=== PATIENT | female | born 1950 | race Caucasian/White ===

== ENCOUNTER → 2016-12-09 | Outpatient (REF) | payer MEDICARE | LOC: M SFHCWAGY 08:48 | PROVIDERS: ATTEND Nurse Practitioner Family | DX: Z01.419 Encounter for gynecological examination (general) (routine) without abnormal findings (principal) | CPT/HCPCS: 82270; G0101; G0123 ==

== ENCOUNTER → 2017-05-11 | Outpatient (REF) | payer MEDICARE | LOC: M LAB REF 17:04 | PROVIDERS: ATTEND Physician Assistant Medical | DX: R30.0 Dysuria (principal) ==

== ENCOUNTER → 2020-06-04 | Outpatient (CLI) | payer MEDICARE ==
--- NOTE | 2020-06-04 14:42 | REP ---
INDICATION: N63.10 JONAS DIAG MAMMO/RIGHT BREAST LUMP; N62.10 RIGHT BREAST LUMP. COMPARISON: Mammography August 18, 2010, November 15, 2007. TECHNIQUE: Bilateral CC and MLO) view(s) were taken. 3D tomography was included. Skin marker is affixed to the skin in the right breast at the site of the palpable lump. Routine views of the right breast are augmented by magnified focal spot-compression images. FINDINGS: Scattered fibroglandular elements are seen bilaterally. No suspicious or dominant density is seen. No microcalcification or architectural distortion is seen. No worrisome skin change is appreciated. 3-D tomosynthesis shows no additional finding. The [place] volumetric breast density pattern is B. There is no suspicious mammographic finding. Targeted right breast sonography: Targeted sonography in the area the right axillary tail in the region of the palpable lump or thickening shows multiple normal appearing lymph nodes. The largest of these measure 2.1 x 1.1 x 0.7 cm and 2.1 x 1.2 x 0.7 cm. These have mm thin cortical margins and hyperechoic echogenic fatty hilar architecture. No mass or cyst is seen. No acoustic shadowing or architectural distortion is appreciated.. IMPRESSION: BIRADS/ACR category 2 benign bilateral mammographic and right breast sonographic findings. Normal appearing lymph nodes in the axilla. No mass or cyst is seen.. Clinical follow-up is advised. This patient's [facility] lifetime breast cancer risk assessment score is 6.3%. This mammogram was interpreted with the aid of an FDA-approved computer-aided detection system. The patient states she had a clinical breast exam in May of 2020.. The patient letter being requested is M2. RECOMMENDATION: Repeat screening mammography recommended 1 year (for women over 40). <Electronically signed by Trell Alston > 06/04/20 [id number]
== END ==
LOC: M WHC 12:10
PROVIDERS: ATTEND Nurse Practitioner Family
DX: Z01.411 Encounter for gynecological examination (general) (routine) with abnormal findings (principal); N63.11 Unspecified lump in the right breast, upper outer quadrant
CPT/HCPCS: 76642; 77066; G0101; G0279

== ENCOUNTER → 2020-06-24 | Outpatient (CLI) | payer SELFPAY | LOC: M LABSMTC 10:52 | PROVIDERS: ATTEND Pediatrics | DX: Z20.822 Contact with and (suspected) exposure to COVID-19 (principal) ==

== ENCOUNTER → 2020-07-24 | Outpatient (REF) | payer MEDICARE | LOC: EEVIPCON 12:39 → M LAB REF 12:39 | PROVIDERS: ATTEND Nurse Practitioner Family | DX: N39.0 Urinary tract infection, site not specified (principal) ==

== ENCOUNTER → 2020-08-08 | Outpatient (REF) | payer MEDICARE ==
[2020-08-08 18:05] LABS: BLOOD UREA NITROGEN 13 MG/DL (7-18); CALCIUM LEVEL 9.5 MG/DL (8.8-10.2); CARBON DIOXIDE LEVEL 32 MEQ/L (21-32); CHLORIDE LEVEL 104 MEQ/L (98-107); CREATININE FOR GFR 0.62 MG/DL (0.55-1.30); GLOMERULAR FILTRATION RATE > 60.0 (>39); GLUCOSE, FASTING 96 MG/DL (70-100); SODIUM LEVEL 141 MEQ/L (136-145)
== END ==
LOC: M PLALAB 14:50
PROVIDERS: ATTEND Surgery
DX: R59.9 Enlarged lymph nodes, unspecified (principal)

== ENCOUNTER → 2020-09-07 | Outpatient (CLI) | payer MEDICARE ==
--- NOTE | 2020-09-07 16:29 | REP ---
INDICATION: PAIN IN RIGHT SHOULDER. COMPARISON: None. TECHNIQUE: There are three views. FINDINGS: The acromioclavicular and glenohumeral articulations are unremarkable. There is no fracture or dislocation. There are no calcifications or foreign bodies. IMPRESSION: Essentially negative plain film study of the right shoulder. <Electronically signed by David Choi > 09/07/20 [id number]
== END ==
LOC: M RAD 15:42
PROVIDERS: ATTEND Physician Assistant
DX: M25.511 Pain in right shoulder (principal)

== ENCOUNTER → 2020-09-10 | Outpatient (CLI) | payer MEDICARE ==
--- NOTE | 2020-09-10 16:30 | REP ---
A sunrise view INDICATION: PAIN RIGHT KNEE. COMPARISON: None. TECHNIQUE: Standing AP and lateral views of each knee. [place] view of each knee. Total of 6 views. FINDINGS: There is moderate osteoarthritis bilaterally. There is joint space narrowing in the lateral compartment of each tibiofemoral articulation with lateral spurring. Medial compartment joint spaces are preserved. There is diffuse osteopenia. There is bilateral patellofemoral joint space narrowing and spur formation as well. Lateral patellar osteophyte formation is seen on the sunrise views. IMPRESSION: Moderate lateral and patellofemoral compartment osteoarthritic changes bilaterally and symmetrically. No erosive changes seen.. <Electronically signed by Trell Alston > 09/10/20 [id number]
== END ==
LOC: M SOG 13:50
PROVIDERS: ATTEND Family Medicine
DX: M17.0 Bilateral primary osteoarthritis of knee (principal)

== ENCOUNTER → 2020-10-22 | Outpatient (CLI) | payer MEDICARE ==
--- NOTE | 2020-10-22 15:16 | REP ---
INDICATION: RT SHOULDER PAIN. COMPARISON: Radiographs 09/07/2020. TECHNIQUE: Coronal oblique T1, T2 fat sat, sagittal oblique T2 fat sat, axial T2 fat sat, gradient echo. FINDINGS: Rotator cuff: There is partial full-thickness tear of the supraspinatus tendon beneath the acromion. Acromioclavicular joint: There are moderate hypertrophic degenerative changes of the acromioclavicular joint with mild downward sloping of the acromion. Acromion: Type 1 Biceps Tendon: In bicipital groove, no tenosynovitis. Hill Sach's deformity: None. Deltoid muscle: No abnormal signal. Biceps labral complex: There is fraying of the biceps labral complex. Labrum: Oblique linear signal in the superior labrum are suggestive of a SLAP tear. Cartilage: There is moderate chondromalacia of the glenoid especially anteriorly. Bone marrow: Moderate subcortical cystic changes are seen in the superolateral humeral head. Joint fluid: There is a large joint effusion. There is large amount of fluid in the subacromial/subdeltoid bursae. IMPRESSION: Full-thickness partial tear supraspinatus tendon. Moderate hypertrophic degenerative changes acromioclavicular joint with mild downward sloping of the acromion. There is fraying of the biceps labral complex. There are findings suggesting a SLAP tear. Further evaluation of the labrum could be made with MR arthrography. Large joint effusion. Large amount of fluid in the subacromial/subdeltoid bursae. <Electronically signed by David Pearce > 10/22/20 [id number]
== END ==
LOC: M PLARAD 13:43
PROVIDERS: ATTEND Orthopaedic Surgery Adult Reconstructive Orthopaedic Surgery
DX: M25.511 Pain in right shoulder (principal); M25.411 Effusion, right shoulder; S46.911A Strain of unspecified muscle, fascia and tendon at shoulder and upper arm level, right arm, initial encounter; X58.XXXA Exposure to other specified factors, initial encounter; Y92.9 Unspecified place or not applicable

== ENCOUNTER → 2020-11-12 | Outpatient (REF) | payer MEDICARE ==
[2020-11-12 13:37] LABS: CHOLESTEROL RISK RATIO 3.554 (<5)
== END ==
LOC: M LABDRWAD 12:22
PROVIDERS: ATTEND Internal Medicine Cardiovascular Disease
DX: E78.2 Mixed hyperlipidemia (principal)

== ENCOUNTER → 2020-12-03 | Outpatient (CLI) | payer MEDICARE ==
--- NOTE | 2020-12-03 15:40 | REP ---
INDICATION: IMPINGEMENT SYNDROME. COMPARISON: None. TECHNIQUE: Six views of the left shoulder were obtained FINDINGS: The glenohumeral and acromioclavicular relationships are within normal limits. There is no acute fracture, dislocation, or subluxation. There is no evidence of significant degenerative change. There is minimal humeral head marginal osteophytosis. IMPRESSION: No acute abnormality noted. Findings as described above. <Electronically signed by Shaan Espinoza > 12/03/20 [id number]
== END ==
LOC: M SOG 13:41
PROVIDERS: ATTEND Orthopaedic Surgery Sports Medicine
DX: M75.42 Impingement syndrome of left shoulder (principal); M25.712 Osteophyte, left shoulder

== ENCOUNTER 2020-12-21 15:25 | Emergency (ER) | payer MEDICARE ==
[~2020-12-21] VITALS: Ht 162.6 cm; Wt 56.1 kg
[2020-12-21] MEDS ORDERED: ASPI81CH48 PO (15:38)
[2020-12-21 16:30] LABS: BASO # 0.1 10^3/uL (0.0-0.2); EOS # 0.1 10^3/uL (0.0-0.5); EOS % 1.2 % (0.0-3.0); HEMATOCRIT 45.6 % (36.0-47.0); HEMOGLOBIN 14.6 g/dl (12.0-15.5); LYMPH # 1.4 10^3/uL (1.5-5.0); LYMPH % 27.7 % (24.0-44.0); MEAN CORPUSCULAR HEMOGLOBIN 29.3 pg (27.0-33.0); MEAN CORPUSCULAR VOLUME 91.6 fl (80.0-96.0); MONO # 0.4 10^3/uL (0.0-0.8); MONO % 6.9 % (2.0-8.0); NEUTROPHILS # 3.2 10^3/uL (1.5-8.5); NEUTROPHILS % 63.2 % (36.0-66.0); PLATELET COUNT, AUTOMATED 211 10^3/uL (150-450); RED BLOOD COUNT 4.98 10^6/uL (4.00-5.40); WHITE BLOOD COUNT 5.1 10^3/uL (4.0-10.0)
[2020-12-21 16:55] LABS: ALBUMIN 4.2 GM/DL (3.2-5.2); ALT/SGPT 23 U/L (12-78); BILIRUBIN,DIRECT 0.1 MG/DL (0.0-0.2); BILIRUBIN,TOTAL 0.5 MG/DL (0.2-1.0); LIPASE 175 U/L (73-393)
[2020-12-21 17:31] LABS: BLOOD UREA NITROGEN 9 MG/DL (7-18); CALCIUM LEVEL 9.3 MG/DL (8.8-10.2); CARBON DIOXIDE LEVEL 29 MEQ/L (21-32); CHLORIDE LEVEL 105 MEQ/L (98-107); CREATININE FOR GFR 0.64 MG/DL (0.55-1.30); GLOMERULAR FILTRATION RATE > 60.0 (>39); GLUCOSE, FASTING 104 MG/DL (70-100); POTASSIUM SERUM 3.8 MEQ/L (3.5-5.1); SODIUM LEVEL 140 MEQ/L (136-145)
--- NOTE | 2020-12-21 18:20 | REP ---
INDICATION: ruq pain COMPARISON: None. TECHNIQUE: Real time osp[place] scale ultrasound examination using curved array transducer. FINDINGS: Liver is normal in contour, size, and echogenicity without focal hepatic lesions identified. Pancreas is incompletely evaluated due to interposed bowel gas. The gallbladder is normal and without gallstones, wall thickening, or pericholecystic fluid. No biliary ductal dilatation is appreciated and the common bile duct measures 5.7 mm diameter. Right kidney is normal in reniform shape with mild pelviectasis and measures 11.8 x 5.2 x 3.9 cm. No significant hydronephrosis, nephrolithiasis, or cystic mass lesion appreciated. No ascites in the visualized right upper quadrant. IMPRESSION: Essentially normal limited right upper quadrant ultrasound <Electronically signed by Angelo Salazar > 12/21/20 [id number]
--- NOTE | 2020-12-21 18:22 | REP ---
INDICATION: ruq pain COMPARISON: None. TECHNIQUE: B-mode grayscale and color evaluation of the right lower quadrant. FINDINGS: The right ovary is normal in appearance and vascularity without torsion and measures 2.0 x 1.2 x 1.0 cm. Further evaluation of the right lower quadrant demonstrates normal peristaltic bowel and no free fluid or adenopathy. The appendix is not visualized. However no secondary findings to suggest acute appendicitis are noted by ultrasound. IMPRESSION: Normal right ovary and right lower quadrant. No secondary findings to suggest acute appendicitis. <Electronically signed by Angelo Salazar > 12/21/20 [id number]
[2020-12-21 18:52] VITALS: BP 135/77
== END 2020-12-21 18:53 | disposition home or self-care (01) ==
LOC: M ED 15:25
DX: R14.0 Abdominal distension (gaseous) (principal); R10.31 Right lower quadrant pain; Z87.442 Personal history of urinary calculi

== ENCOUNTER → 2020-12-30 | Outpatient (CLI) | payer MEDICARE ==
[~2020-12-30] MED LIST: ASPI81CH48 PO
== END ==
LOC: M RAD 16:16
PROVIDERS: ATTEND Orthopaedic Surgery Sports Medicine
DX: M75.42 Impingement syndrome of left shoulder (principal)

== ENCOUNTER → 2021-03-24 | Outpatient (CLI) | payer MEDICARE ==
--- NOTE | 2021-03-25 08:58 | REP ---
INDICATION: RT BREAST , MASS. Unspecified lump in the right breast, unspecified quadrant. Axillary tail region. COMPARISON: Comparison sonography June 04, 2020. TECHNIQUE: Targeted right axillary sonography. FINDINGS: Numerous normal appearing lymph nodes are again seen in the right axilla. The 2 largest lymph nodes measure 1.1 x 2.8 x 0.7 cm and 0.9 x 1.0 x 0.6 cm. These have thin cortical margins. These appear unchanged from the June 04, 2020 study. No suspicious cortical thickening or mass lesion is seen. No cyst is observed. IMPRESSION: Stable BI-RADS category 2 benign findings. <Electronically signed by Trell Alston > 03/25/21 [id number]
== END ==
LOC: M RAD 17:38
PROVIDERS: ATTEND Surgery
DX: N63.31 Unspecified lump in axillary tail of the right breast (principal); Z80.3 Family history of malignant neoplasm of breast

== ENCOUNTER → 2021-07-02 | Outpatient (REF) | LOC: M LABSMTC 12:16 | PROVIDERS: ATTEND Pediatrics | DX: Z11.52 Encounter for screening for COVID-19 (principal) ==

== ENCOUNTER → 2021-11-10 | Outpatient (REF) | payer MEDICARE | LOC: M WUC 20:33 | PROVIDERS: ATTEND Physician Assistant | DX: R30.0 Dysuria (principal) ==

== ENCOUNTER → 2021-11-17 | Outpatient (REF) | payer MEDICARE ==
[2021-11-17 17:46] LABS: APPEARANCE, URINE CLEAR (CLEAR); BACTERIA, URINE AUTO NEGATIVE (NEGATIVE); BILIRUBIN, URINE AUTO NEGATIVE (NEGATIVE); BLOOD, URINE BLOOD NEGATIVE (NEGATIVE); COLOR, URINE STRAW (YELLOW); GLUCOSE, URINE (UA) AUTO NEGATIVE (NEGATIVE); KETONE, URINE AUTO NEGATIVE (NEGATIVE); LEUKOCYTE ESTERASE, URINE AUTO NEGATIVE (NEGATIVE); NITRITE, URINE AUTO NEGATIVE (NEGATIVE); PROTEIN, URINE AUTO NEGATIVE (NEGATIVE); RBC, URINE AUTO 0 /HPF (0-3); SPECIFIC GRAVITY URINE AUTO 1.005 (1.002-1.035); SQUAMOUS EPITHELIAL CELL UR AU 0 /HPF (0-6); UROBILINOGEN, URINE AUTO 0.2 mg/dL (0.0-2.0); WBC, URINE AUTO 0 /HPF (0-3)
== END ==
LOC: M LAB REF 17:08
PROVIDERS: ATTEND Physician Assistant Medical
DX: N39.0 Urinary tract infection, site not specified (principal)

== ENCOUNTER → 2021-12-30 | Outpatient (CLI) | payer MEDICARE | LOC: M RAD 15:37 | PROVIDERS: ATTEND Physician Assistant | DX: N32.89 Other specified disorders of bladder (principal); R10.9 Unspecified abdominal pain ==

== ENCOUNTER → 2022-01-19 | Outpatient (CLI) | payer MEDICARE | LOC: M WHC 11:27 | PROVIDERS: ATTEND Physician Assistant | DX: Z12.31 Encounter for screening mammogram for malignant neoplasm of breast (principal) ==

== ENCOUNTER → 2022-01-26 | Outpatient (REF) | payer MEDICARE ==
[2022-01-26 17:25] LABS: APPEARANCE, URINE CLEAR (CLEAR); BACTERIA, URINE AUTO NEGATIVE (NEGATIVE); BILIRUBIN, URINE AUTO NEGATIVE (NEGATIVE); BLOOD, URINE BLOOD NEGATIVE (NEGATIVE); COLOR, URINE COLORLESS (YELLOW); GLUCOSE, URINE (UA) AUTO NEGATIVE (NEGATIVE); KETONE, URINE AUTO NEGATIVE (NEGATIVE); LEUKOCYTE ESTERASE, URINE AUTO NEGATIVE (NEGATIVE); NITRITE, URINE AUTO NEGATIVE (NEGATIVE); PROTEIN, URINE AUTO NEGATIVE (NEGATIVE); RBC, URINE AUTO 0 /HPF (0-3); SPECIFIC GRAVITY URINE AUTO 1.003 (1.002-1.035); SQUAMOUS EPITHELIAL CELL UR AU 0 /HPF (0-6); UROBILINOGEN, URINE AUTO 0.2 mg/dL (0.0-2.0); WBC, URINE AUTO 0 /HPF (0-3)
== END ==
LOC: M SMT 16:53
PROVIDERS: ATTEND Urology
DX: Z87.440 Personal history of urinary (tract) infections (principal); Z79.899 Other long term (current) drug therapy

== ENCOUNTER → 2023-02-23 | Outpatient (REF) | payer MEDICARE | LOC: M SFHCDERM 12:53 | PROVIDERS: ATTEND Nurse Practitioner Family | DX: C44.519 Basal cell carcinoma of skin of other part of trunk (principal) ==

== ENCOUNTER → 2023-03-11 | Outpatient (CLI) | payer MEDICARE | LOC: M SOG 07:52 | PROVIDERS: ATTEND Orthopaedic Surgery | DX: M17.0 Bilateral primary osteoarthritis of knee (principal) ==

== ENCOUNTER → 2023-03-30 | Outpatient (CLI) | payer MEDICARE | LOC: M WHC 16:32 | PROVIDERS: ATTEND Physician Assistant | DX: Z12.31 Encounter for screening mammogram for malignant neoplasm of breast (principal) ==

== ENCOUNTER → 2023-11-01 | Outpatient (REF) | payer MEDICARE ==
[2023-11-01 16:57] LABS: APPEARANCE, URINE CLEAR (CLEAR); BACTERIA, URINE AUTO NEGATIVE (NEGATIVE); BILIRUBIN, URINE AUTO NEGATIVE (NEGATIVE); BLOOD, URINE BLOOD NEGATIVE (NEGATIVE); COLOR, URINE STRAW (YELLOW); GLUCOSE, URINE (UA) AUTO NEGATIVE (NEGATIVE); KETONE, URINE AUTO NEGATIVE (NEGATIVE); LEUKOCYTE ESTERASE, URINE AUTO NEGATIVE (NEGATIVE); NITRITE, URINE AUTO NEGATIVE (NEGATIVE); PROTEIN, URINE AUTO NEGATIVE (NEGATIVE); RBC, URINE AUTO 0 /HPF (0-3); SPECIFIC GRAVITY URINE AUTO 1.003 (1.002-1.035); SQUAMOUS EPITHELIAL CELL UR AU 0 /HPF (0-6); UROBILINOGEN, URINE AUTO 0.2 mg/dL (0.0-2.0); WBC, URINE AUTO 0 /HPF (0-3)
== END ==
LOC: M LAB REF 16:14
PROVIDERS: ATTEND Physician Assistant Medical
DX: N39.0 Urinary tract infection, site not specified (principal)

== ENCOUNTER 2024-01-12 15:56 | Emergency (ER) | payer MEDICARE ==
[~2024-01-12] VITALS: Ht 160 cm; Wt 55.4 kg
[2024-01-12 19:59] LABS: VENOUS BASE EXCESS 2.1 (-2.0-2.0); VENOUS HCO3 28.7 MMOL/L (23.0-27.0); VENOUS PARTIAL PRESSURE CO2 52.4 mmHg (38.0-50.0); VENOUS PARTIAL PRESSURE O2 26.2 mmHg (30.0-50.0); VENOUS PH 7.356 UNITS (7.330-7.430); VENOUS STANDARD HCO3 24.9 MMOL/L; VENOUS TOTAL CO2 30.3 MMOL/L (24.0-28.0)
[2024-01-12 20:08] LABS: BASO # 0.1 10^3/uL (0.0-0.2); BASO % 0.8 % (0.0-1.0); EOS # 0.1 10^3/uL (0.0-0.5); EOS % 1.5 % (0.0-3.0); HEMATOCRIT 43.5 % (36.0-47.0); HEMOGLOBIN 14.1 g/dl (12.0-15.5); LYMPH # 1.7 10^3/uL (1.5-5.0); LYMPH % 27.5 % (24.0-44.0); MEAN CORPUSCULAR HGB CONC 32.4 g/dl (32.0-36.5); MEAN CORPUSCULAR VOLUME 89.3 fl (80.0-96.0); MONO # 0.3 10^3/uL (0.0-0.8); MONO % 5.5 % (2.0-8.0); NEUTROPHILS % 64.7 % (36.0-66.0); PLATELET COUNT, AUTOMATED 213 10^3/uL (150-450); RED BLOOD COUNT 4.87 10^6/uL (4.00-5.40); WHITE BLOOD COUNT 6.2 10^3/uL (4.0-10.0)
[2024-01-12 20:32] LABS: CK-MB VALUE MASS 1.9 NG/ML (<3.6); LIPASE 45 U/L (12-53)
[2024-01-12 20:33] LABS: CPK CREATINE PHOSPHOKINASE 102 U/L (34-145); MB/CK RELATIVE INDEX 1.86 (< OR =4)
[2024-01-12 20:34] LABS: ALBUMIN 3.8 G/DL (3.2-5.2); ALKALINE PHOSPHATASE 77 U/L (46-116); ALT/SGPT 14 U/L (7.0-40); AST/SGOT 10 U/L (<34); BILIRUBIN,DIRECT 0.1 MG/DL (<0.4); BILIRUBIN,TOTAL 0.5 MG/DL (0.3-1.2); BLOOD UREA NITROGEN 11 MG/DL (9-23); CALCIUM LEVEL 9.7 MG/DL (8.3-10.6); CARBON DIOXIDE LEVEL 29 MMOL/L (20-31); CHLORIDE LEVEL 108 MMOL/L (98-107); CREATININE FOR GFR 0.55 MG/DL (0.55-1.30); GLOMERULAR FILTRATION RATE > 60.0 (>39); GLUCOSE, FASTING 85 MG/DL (74-106); MAGNESIUM LEVEL 2.3 MG/DL (1.8-2.4); POTASSIUM SERUM 3.9 MMOL/L (3.5-5.1); SODIUM LEVEL 140 MMOL/L (136-145)
[2024-01-12 21:28] LABS: CK-MB VALUE MASS 2.7 NG/ML (<3.6)
[2024-01-12 21:30] LABS: MB/CK RELATIVE INDEX 2.62 (< OR =4)
[2024-01-12 22:15] VITALS: O2SAT 98
[2024-01-12 22:16] VITALS: BP 125/68
[2024-01-12 22:21] VITALS: TEMP 98
== END 2024-01-12 22:29 | disposition home or self-care (01) ==
LOC: M ED 15:56
DX: R07.89 Other chest pain (principal); R00.1 Bradycardia, unspecified; Z91.09 Other allergy status, other than to drugs and biological substances; Z79.1 Long term (current) use of non-steroidal anti-inflammatories (NSAID)

== ENCOUNTER → 2024-01-31 | Outpatient (REF) | payer MEDICARE | LOC: M LAB REF 17:28 | PROVIDERS: ATTEND Physician Assistant | DX: R11.2 Nausea with vomiting, unspecified (principal); A08.11 Acute gastroenteropathy due to Norwalk agent; R19.7 Diarrhea, unspecified; R10.817 Generalized abdominal tenderness ==

== ENCOUNTER → 2024-03-17 | Outpatient (REF) | payer MEDICARE ==
[2024-03-17 20:45] LABS: APPEARANCE, URINE CLEAR (CLEAR); BACTERIA, URINE AUTO NEGATIVE (NEGATIVE); BILIRUBIN, URINE AUTO NEGATIVE (NEGATIVE); BLOOD, URINE BLOOD 2+ (NEGATIVE); COLOR, URINE STRAW (YELLOW); GLUCOSE, URINE (UA) AUTO NEGATIVE (NEGATIVE); KETONE, URINE AUTO NEGATIVE (NEGATIVE); LEUKOCYTE ESTERASE, URINE AUTO 3+ (NEGATIVE); NITRITE, URINE AUTO NEGATIVE (NEGATIVE); PROTEIN, URINE AUTO NEGATIVE (NEGATIVE); RBC, URINE AUTO 0 /HPF (0-3); SPECIFIC GRAVITY URINE AUTO 1.002 (1.002-1.035); SQUAMOUS EPITHELIAL CELL UR AU 0 /HPF (0-6); UROBILINOGEN, URINE AUTO 0.2 mg/dL (0.0-2.0); WBC, URINE AUTO 2 /HPF (0-3)
== END ==
LOC: M LAB REF 16:30
PROVIDERS: ATTEND Physician Assistant Medical
DX: N39.0 Urinary tract infection, site not specified (principal)

== ENCOUNTER → 2024-05-09 | Outpatient (REF) | payer MEDICARE ==
[2024-05-09 18:24] LABS: APPEARANCE, URINE CLEAR (CLEAR); BACTERIA, URINE AUTO NEGATIVE (NEGATIVE); BILIRUBIN, URINE AUTO NEGATIVE (NEGATIVE); BLOOD, URINE BLOOD NEGATIVE (NEGATIVE); COLOR, URINE COLORLESS (YELLOW); GLUCOSE, URINE (UA) AUTO NEGATIVE (NEGATIVE); KETONE, URINE AUTO NEGATIVE (NEGATIVE); LEUKOCYTE ESTERASE, URINE AUTO NEGATIVE (NEGATIVE); NITRITE, URINE AUTO NEGATIVE (NEGATIVE); PROTEIN, URINE AUTO NEGATIVE (NEGATIVE); RBC, URINE AUTO 1 /HPF (0-3); SPECIFIC GRAVITY URINE AUTO 1.002 (1.002-1.035); SQUAMOUS EPITHELIAL CELL UR AU 0 /HPF (0-6); UROBILINOGEN, URINE AUTO 0.2 mg/dL (0.0-2.0); WBC, URINE AUTO 0 /HPF (0-3)
== END ==
LOC: M SMT 17:18
PROVIDERS: ATTEND Nurse Practitioner Family
DX: N39.0 Urinary tract infection, site not specified (principal)

== ENCOUNTER → 2024-09-18 | Outpatient (CLI) | payer MEDICARE ==
[2024-09-18 16:34] LABS: HEMATOCRIT 43.3 % (36.0-47.0); HEMOGLOBIN 13.9 g/dl (12.0-15.5); MEAN CORPUSCULAR HEMOGLOBIN 28.9 pg (27.0-33.0); MEAN CORPUSCULAR HGB CONC 32.1 g/dl (32.0-36.5); PLATELET COUNT, AUTOMATED 213 10^3/uL (150-450); RED BLOOD COUNT 4.81 10^6/uL (4.00-5.40); WHITE BLOOD COUNT 5.7 10^3/uL (4.0-10.0)
[2024-09-18 16:38] LABS: ERYTHROCYTE SEDIMENTATION RATE 17 mm/hr (0-30)
[2024-09-18 16:59] LABS: ALBUMIN 3.8 G/DL (3.2-5.2); ALKALINE PHOSPHATASE 81 U/L (35-104); ALT/SGPT 18 U/L (7.0-40); AST/SGOT 15 U/L (<34); BILIRUBIN,TOTAL 0.5 MG/DL (0.3-1.2); BLOOD UREA NITROGEN 14 MG/DL (9-23); C REACTIVE PROTEIN QUANTITATIV < 0.50 MG/DL (<1.0); CALCIUM LEVEL 9.7 MG/DL (8.3-10.6); CARBON DIOXIDE LEVEL 32 MMOL/L (20-31); CHLORIDE LEVEL 105 MMOL/L (98-107); CHOLESTEROL LEVEL 306 MG/DL (<200); CREATININE FOR GFR 0.68 MG/DL (0.55-1.30); GLOMERULAR FILTRATION RATE > 60.0 (>39); HDL CHOLESTEROL 87.2 MG/DL (>40); LDL CHOLESTEROL 198.2 MG/DL (<100); NON-HDL-C 218.8 MG/DL; POTASSIUM SERUM 3.9 MMOL/L (3.5-5.1); SODIUM LEVEL 142 MMOL/L (136-145); TOTAL PROTEIN 7.2 G/DL (5.7-8.2); TRIGLYCERIDES LEVEL 103 MG/DL (<150)
[2024-09-18 17:01] LABS: THYROID STIMULATING HORMONE 2.462 uIU/ML (0.55-4.78)
[2024-09-19 07:59] LABS: GLUCOSE, FASTING 82 MG/DL (74-106)
== END ==
LOC: M RAD 15:51
PROVIDERS: ATTEND Physician Assistant
DX: M46.1 Sacroiliitis, not elsewhere classified (principal); M25.551 Pain in right hip; M16.12 Unilateral primary osteoarthritis, left hip; M85.88 Other specified disorders of bone density and structure, other site; M53.3 Sacrococcygeal disorders, not elsewhere classified; E78.5 Hyperlipidemia, unspecified

== ENCOUNTER → 2025-01-28 | Outpatient (CLI) | payer MEDICARE | LOC: M WHC 14:10 | PROVIDERS: ATTEND Nurse Practitioner Family | DX: R39.89 Other symptoms and signs involving the genitourinary system (principal); N20.0 Calculus of kidney ==

== ENCOUNTER → 2025-02-01 | Outpatient (CLI) | payer MEDICARE ==
[2025-02-01 15:18] LABS: CHOLESTEROL LEVEL 292.0 MG/DL (<200); CHOLESTEROL RISK RATIO 3.55 (<5); LDL CHOLESTEROL 198.3 MG/DL (<100); NON-HDL-C 209.9 MG/DL; TRIGLYCERIDES LEVEL 58.0 MG/DL (<150)
== END ==
LOC: M PLALAB 12:09
PROVIDERS: ATTEND Physician Assistant
DX: E78.5 Hyperlipidemia, unspecified (principal)

== ENCOUNTER → 2025-02-13 | Outpatient (CLI) | payer MEDICARE | LOC: M WHC 14:13 | PROVIDERS: ATTEND Physician Assistant | DX: Z12.31 Encounter for screening mammogram for malignant neoplasm of breast (principal); R92.323 Mammographic fibroglandular density, bilateral breasts; M79.644 Pain in right finger(s); M19.041 Primary osteoarthritis, right hand ==

== ENCOUNTER → 2025-02-13 | Outpatient (CLI) | payer MEDICARE | LOC: M SOG 06:55 | PROVIDERS: ATTEND Physician Assistant | DX: M79.644 Pain in right finger(s) (principal) ==

== ENCOUNTER → 2025-02-27 | Outpatient (CLI) | payer MEDICARE | LOC: M SOG 09:52 | PROVIDERS: ATTEND Physician Assistant | DX: M79.645 Pain in left finger(s) (principal) ==

== ENCOUNTER → 2025-06-03 | Outpatient (REF) | payer MEDICARE ==
[2025-06-03 17:11] LABS: ALT/SGPT 20.0 U/L (7.0-40); AST/SGOT 22.0 U/L (<34); CHOLESTEROL LEVEL 302.0 MG/DL (<200); CHOLESTEROL RISK RATIO 3.49 (<5); LDL CHOLESTEROL 200.2 MG/DL (<100); NON-HDL-C 215.6 MG/DL; TRIGLYCERIDES LEVEL 77.0 MG/DL (<150)
== END ==
LOC: M LABDRWAD 16:44
PROVIDERS: ATTEND Internal Medicine Cardiovascular Disease
DX: E78.5 Hyperlipidemia, unspecified (principal); R07.9 Chest pain, unspecified; E78.2 Mixed hyperlipidemia; Q21.10 Atrial septal defect, unspecified